=== PATIENT | female | born 1950 | race Caucasian/White ===

== ENCOUNTER → 2017-08-13 | Day surgery (SDC) | payer BC, MEDICARE ==
[2017-08-13 07:22] VITALS: BP 168/86; PULSE 111; RESP 16; TEMP 98.5; BMI 34.2
--- NOTE | 2017-08-14 11:16 | MM ---
Discontinued Stereotactic Mammotome core biopsy left breast. HISTORY: Increasing density left breast Multiple attempts at the localizing the density in question proved unsuccessful. Stereotactic core bi opsy was therefore discontinued. This was discussed with the patient and ordering physician. Needle l ocalization is recommended. IMPRESSION: Suspicious BI-RADS 4 Recommendation: Needle localization with open biopsy left breast.
== END | disposition home or self-care (01) ==
LOC: RADMAMWWP 06:49
PROVIDERS: ATTEND Surgery
DX: R92.8 Other abnormal and inconclusive findings on diagnostic imaging of breast (principal); Z88.8 Allergy status to other drugs, medicaments and biological substances; Z53.8 Procedure and treatment not carried out for other reasons

== ENCOUNTER 2017-08-25 07:04 | Day surgery (SDC) | payer MEDICARE, BC ==
[2017-08-20 11:31] VITALS: BMI 34.2
[~2017-08-25 07:04] MED LIST: DEXAMETHASONE SOD PHOSPHATE 10 MG/ML 1 ML VIAL IV ONE; HEPARIN SODIUM,PORCINE 5,000 UNIT/ML 1 ML VIAL SQ ONE; MIDAZOLAM 2 MG/2 ML VIAL IV PRN; ONDANSETRON 4 MG/2 ML VIAL IVP ONE; Pre Op ABX Message 1 EACH MISC MISCELLANE ONE; fentaNYL (PF) 50 MCG/ML 2 ML AMP IV PRN
[2017-08-25] MEDS ORDERED: ALPRAZolam 0.25 MG TAB PO ONE (07:40)
[2017-08-25 07:43] LABS: Glucose,Whole Blood 139 mg/dL (75-99)
[2017-08-25] MEDS ORDERED: LIDOCAINE 1% 20 ML VIAL (10MG/ML) FOR IV START INTRADERMA ONE (07:45)
[2017-08-25] MEDS: LACTATED RINGERS 1,000 ML IV SCH ×2 (07:45→10:46)
[2017-08-25] MEDS ORDERED: LIDOCAINE 1% INJ 10MG/ML (20 ML MDV) SQ ONE (09:16)
[2017-08-25] MEDS ORDERED: SODIUM BICARB 4% 5 ML VIAL (0.48 MEQ/ML) MISCELLANE ONE (09:16)
[2017-08-25] MEDS ORDERED: HEPARIN SODIUM,PORCINE 5,000 UNIT/ML 1 ML VIAL SQ ONE (10:34)
[2017-08-25] MEDS ORDERED: PHENYLEPHRINE-0.9% NACL SYG 1 MG/10 ML SYRINGE ONE (10:47)
[2017-08-25] MEDS ORDERED: LIDOCAINE 1% INJ 10MG/ML (20 ML MDV) ONE (10:47)
[2017-08-25] MEDS ORDERED: PROPOFOL 10 MG/ML 20 ML VIAL IV ONE (10:47)
[2017-08-25] MEDS ORDERED: SUCCINYLCHOLINE CHLORIDE 100 MG/5 ML SYR IV ONE (10:47)
[2017-08-25] MEDS ORDERED: fentaNYL (PF) 50 MCG/ML 2 ML AMP ONE (10:47)
[2017-08-25] MEDS ORDERED: MIDAZOLAM 2 MG/2 ML VIAL ONE (10:47)
--- NOTE | 2017-08-25 11:37 | P.OP ---
Date of Procedure: 08/25/17 Preoperative Diagnosis: Mammographic abnormality left breast Postoperative Diagnosis: same Anesthesia: ZAINA Surgeon: Karla Jarvis Estimated Blood Loss (ml): 5 IV fluids (ml): 600 Pathology: other (left breast tissue) Condition: stable Disposition: PACU Indications for Procedure: Mammographic abnormality left breast Operative Findings: Fibrocystic breast tissue Description of Procedure: Patient was taken to the operating room and following induction of anesthesia the left breast was prepped and draped in a sterile fashion. An incision was made and carried down to the hook of the dilator which had been placed preoperatively. Wide excision of the surrounding tissue was performed. After assured that hemostasis was attained the wound was well irrigated. The specimen was painted for orientation. Specimen was sent to x-ray for radiograph revealed that the area of concern had been removed. The surgeon's gloves were changed and the area of the left breast was again approached. Titanium clips were placed to coleman the area. The skin was closed using a 4-0 Monocryl suture. The tissues were closed with 3-0 Vicryl suture. The patient tolerated the procedure in stable condition.
--- NOTE | 2017-08-25 11:38 | P.DS ---
Providers Attending physician: Karla Jarvis Primary care physician: Chavez Santillan Plan - Discharge Summary New Discharge Prescriptions: No Action Irbesartan [Avapro] 150 mg PO BID Folic Acid 1 mg PO HS metFORMIN HCL 1,000 mg PO BID aMILoride-HCTZ 5-50 mg [Moduretic 5-50] 1 tab PO QAM Omeprazole [PriLOSEC] 40 mg PO HS Ferrous Sulfate [Feosol] 325 mg PO DAILY Cetirizine HCl [Zyrtec] 10 mg PO HS Montelukast [Singulair] 10 mg PO HS Insulin Detemir [Levemir Flextouch] 8 unit SQ HS Levothyroxine Sodium [Synthroid] 25 mcg PO QAM Cholecalciferol [Vitamin D3] 1,000 unit PO DAILY Aspirin [Adult Low Dose Aspirin EC] 81 mg PO DAILY Discharge Medication List Folic Acid 1 mg PO HS 08/31/14 [History] Irbesartan [Avapro] 150 mg PO BID 08/31/14 [History] Omeprazole [PriLOSEC] 40 mg PO HS 08/31/14 [History] aMILoride-HCTZ 5-50 mg [Moduretic 5-50] 1 tab PO QAM 08/31/14 [History] metFORMIN HCL 1,000 mg PO BID 08/31/14 [History] Cetirizine HCl [Zyrtec] 10 mg PO HS 07/20/15 [History] Cholecalciferol [Vitamin D3] 1,000 unit PO DAILY 07/20/15 [History] Ferrous Sulfate [Feosol] 325 mg PO DAILY 07/20/15 [History] Insulin Detemir [Levemir Flextouch] 8 unit SQ HS 07/20/15 [History] Levothyroxine Sodium [Synthroid] 25 mcg PO QAM 07/20/15 [History] Montelukast [Singulair] 10 mg PO HS 07/20/15 [History] Aspirin [Adult Low Dose Aspirin EC] 81 mg PO DAILY 07/31/17 [History] Follow up Appointment(s)/Referral(s): Karla Jarvis MD [STAFF PHYSICIAN] - 1 Week Activity/Diet/Wound Care/Special Instructions: Do not drive today Patient may shower after 48 hours Withdraw at all times Discharge Disposition: HOME SELF-CARE
[2017-08-25 11:51] VITALS: TEMP 97.4
[2017-08-25 11:51] LABS: Glucose,Whole Blood 124 mg/dL (75-99)
[2017-08-25] MEDS ORDERED: LACTATED RINGERS 1,000 ML IV ONE (12:07)
[2017-08-25 12:16] VITALS: RESP 16
[2017-08-25 12:46] VITALS: BP 135/65; PULSE 90
--- NOTE | 2017-08-25 14:14 | MM ---
EXAMINATION TYPE: MG pre op needle loc LT, MG surgical specimen LT DATE OF EXAM: 08/25/2017 COMPARISON: Exams dating back to 12/08/2011. CLINICAL HISTORY: Left breast asymmetry versus focal asymmetry without sonographic correlate. Canceled stereotactic biopsy secondary to nonvisualization. TECHNIQUE: Needle localization with wire placement and surgical excision of area of concern in the left breast. FINDINGS: The procedure of needle localization with wire placement and than surgical excision was explained to the patient. Benefits, alternatives, and risks were discussed. An informed consent was then obtained. Preprocedural timeout was performed. The shortest pathway for procedure was chosen. Shortest pathway was CC from above approach as the area of concern was best visualized in the CC projection on screening and diagnostic imaging. However, multiple attempts were made at localization and the previously seen asymmetry appears to compress with the appearance of fibroglandular tissue. The most pronounced area seen centrally on image 20 was localized corresponding to a superior asymmetry on the LM view. The overlying skin was prepped and draped in usual sterile fashion. 10 cc of lidocaine buffered with bicarbonate was used as anesthetic into the skin and subcutaneous tissue up to the level of area of concern. A 5 cm needle was used. It was placed via a CC from above approach under mammographic guidance. Subsequent 90 degrees mammogram show the needle to be in satisfactory position relative to the targeted area. At this point, wire was placed and the needle was withdrawn. The wire was fixed to patient's skin. Images were marked for surgeon. The patient tolerated the procedure well without any immediate complication. The patient was kept in the radiology department for short stay after the procedure and then taken to surgery for surgical excision. The entirety of the localization wire and surrounding density are identified in specimen radiograph. Findings were communicated to the OR. The patient was kept in hospital for short stay after the procedure and then discharged home in stable condition. IMPRESSION: Successful, uncomplicated needle localization with wire placement and surgical excision of the low suspicion, slightly more conspicuous focal asymmetry of the central upper left breast in comparison to prior exams without sonographic correlate, full pathology results to follow. Pathology Results: Benign BREAST, LEFT, NEEDLE LOCALIZATION EXCISION: FIBROCYSTIC CHANGES INCLUDING DENSE STROMAL FIBROSIS AND RARE MICROCALCIFICATIONS. Recommendation Follow up mammogram of the left breast in 6 months. YOSELIN
== END 2017-08-25 13:41 | disposition home or self-care (01) ==
LOC: OR 07:04
PROVIDERS: ATTEND Surgery
DX: N60.32 Fibrosclerosis of left breast (principal); R92.0 Mammographic microcalcification found on diagnostic imaging of breast; I10 Essential (primary) hypertension; M19.90 Unspecified osteoarthritis, unspecified site; E66.01 Morbid (severe) obesity due to excess calories; Z68.34 Body mass index [BMI] 34.0-34.9, adult; E11.9 Type 2 diabetes mellitus without complications; D50.9 Iron deficiency anemia, unspecified; E03.9 Hypothyroidism, unspecified; K21.9 Gastro-esophageal reflux disease without esophagitis; E78.5 Hyperlipidemia, unspecified; Z88.8 Allergy status to other drugs, medicaments and biological substances; Z79.2 Long term (current) use of antibiotics; Z79.82 Long term (current) use of aspirin; Z79.4 Long term (current) use of insulin; Z79.899 Other long term (current) drug therapy; Z79.84 Long term (current) use of oral hypoglycemic drugs; Z79.890 Hormone replacement therapy; Z86.010 Personal history of colon polyps; Z87.19 Personal history of other diseases of the digestive system
CPT/HCPCS: 19125; 88307; 76098; 19281; J2250; J1644; J1100; J2405; J2001; J3010; J2370; J0330; J2704

== ENCOUNTER → 2018-03-24 | Outpatient (CLI) | payer MEDICARE, BC ==
--- NOTE | 2018-03-25 09:47 | MM ---
Reason for exam: follow-up at short interval from prior study. Last mammogram was performed 2 years ago. History: Patient is postmenopausal. Benign MG pre op needle loc LT of the left breast, August 25, 2017. MG discontinued stereo core LT of the left breast, August 13, 2017. Took estrogen for 11 years beginning at age 44. Physical Findings: Nurse did not find any significant physical abnormalities on exam. MG 3D Diag Mammo W/Cad LT CC and MLO view(s) were taken of the left breast. Prior study comparison: March 12, 2016, bilateral MG screening mammo w CAD. August 07, 2014, bilateral MG screening mammo w CAD. There are scattered fibroglandular densities. Post operative changes left breast. No significant new findings when compared with previous films. These results were verbally communicated with the patient and result sheet given to the patient on 03/24/18. ASSESSMENT: Benign, BI-RAD 2 RECOMMENDATION: Routine screening mammogram of both breasts in 6 months.
== END | disposition home or self-care (01) ==
LOC: RADMAMWWP 10:34
PROVIDERS: ATTEND Surgery
DX: R92.8 Other abnormal and inconclusive findings on diagnostic imaging of breast (principal)
CPT/HCPCS: 77065; G0279; 77061

== ENCOUNTER → 2018-04-02 | Outpatient (CLI) | payer MEDICARE, BC ==
[2018-04-02 15:15] VITALS: BP 181/77; PULSE 80; RESP 20; TEMP 97.5; BMI 32.9
--- NOTE | 2018-04-02 15:36 | P.GSHP ---
History of Present Illness H&P Date: 04/02/18 Chief Complaint: Patient s/p left breast needle local and excisional biopsy August 2017 The patient is a 67-year-old white female who in the spring underwent a radiograph which revealed an increasing density in the left breast. Multiple attempts at localizing the density in question were unsuccessful and stereotactic core biopsy which was initially attempted was discontinued. The patient therefore underwent a needle localization and excisional biopsy. Pathology from this revealed fibrocystic changes including dense stromal fibrosis and rare microcalcifications. The patient subsequently underwent a repeat left breast mammogram on 1030 118. This was of the left breast only and this was felt to be stable benign BIRADS 2. Bilateral mammogram in 6 months was recommended. The patient is not complaining of any lumps or masses in her breast. The patient has not had any recent trauma or infection in her breast. Family history: maternal grandmother: cancer unsure of the type paternal grandmother: cancer unsure of the type Hormonal History: menarche: 15 ; 1, 1 child, breast fed: no, age at : 27 menopause: hysterectomy took ovaries in her 30's done for bleeding BCP: 1 year hormones: after hysterectomy 2 years Past surgical history: 1. Left breast biopsy 2. Right hip tendon surgery Past medical history: 1. Diabetes 2. Hypertension Social History: smoke: none alcohol: none drugs: none - Constitutional Constitutional: Denies chills, Denies fever - EENT Eyes: denies blurred vision, denies pain Ears: bilateral: tinnitus, deny: decreased hearing Ears, nose, mouth and throat: Reports sore throat - Breasts Breasts: bilateral: as per HPI - Cardiovascular Cardiovascular: Reports high blood pressure - Respiratory Respiratory: Denies cough, Denies 7 - Gastrointestinal Comment: PUD in past Gastrointestinal: Denies abdominal pain, Denies diarrhea, Denies nausea, Denies vomiting - Genitourinary (Female) Genitourinary: Denies dysuria, Denies hematuria - Musculoskeletal Comment: right hip pain, - Integumentary Integumentary: Denies pruritus, Denies rash - Neurological Neurological: Denies numbness, Denies weakness - Psychiatric Psychiatric: Denies anxiety, Denies depression - Endocrine Comment: diabetes - Hematologic/Lymphatic Comment: none - Allergic/Immunologic Allergic/Immunologic: Reports seasonal allergies Past Medical History Past Medical History: Diabetes Mellitus, GERD/Reflux, Hypertension, Osteoarthritis (OA) Additional Past Medical History / Comment(s): ENVIRONMENTAL ALLERGIES, HIATAL HERNIA, ANEMIA WITH IRON TRANSFUSION., RIGHT HIP PAIN. , ABNORMAL MAMMOGRAM. History of Any Multi-Drug Resistant Organisms: None Reported Past Surgical History: Cholecystectomy, Hysterectomy Additional Past Surgical History / Comment(s): larry 2012, hysterectomy 1992, sinus surgery 2008, tendon reattached in right leg with screws in place 2007. Past Anesthesia/Blood Transfusion Reactions: No Reported Reaction Past Psychological History: No Psychological Hx Reported Smoking Status: Never smoker Past Alcohol Use History: None Reported Past Drug Use History: None Reported - Past Family History Mother Family Medical History: No Reported History Brother(s) Family Medical History: Pulmonary Embolus Father Family Medical History: Diabetes Mellitus, Myocardial Infarction (DC) Medications and Allergies Home Medications Medication Instructions Recorded Confirmed Type Folic Acid 1 mg PO HS 08/31/14 04/02/18 History Irbesartan [Avapro] 150 mg PO BID 08/31/14 04/02/18 History Omeprazole [PriLOSEC] 40 mg PO HS 08/31/14 04/02/18 History aMILoride-HCTZ 5-50 mg [Moduretic 1 tab PO QAM 08/31/14 04/02/18 History 5-50] metFORMIN HCL 1,000 mg PO BID 08/31/14 04/02/18 History Cetirizine HCl [Zyrtec] 10 mg PO HS 07/20/15 04/02/18 History Cholecalciferol [Vitamin D3] 1,000 unit PO DAILY 07/20/15 04/02/18 History Ferrous Sulfate [Feosol] 325 mg PO DAILY 07/20/15 04/02/18 History Insulin Detemir [Levemir Flextouch] 8 unit SQ HS 07/20/15 04/02/18 History Levothyroxine Sodium [Synthroid] 25 mcg PO QAM 07/20/15 04/02/18 History Montelukast [Singulair] 10 mg PO HS 07/20/15 04/02/18 History Aspirin [Adult Low Dose Aspirin EC] 81 mg PO DAILY 07/31/17 04/02/18 History Metoprolol Tartrate [Lopressor] 25 mg PO BID 04/02/18 04/02/18 History Allergies Allergy/AdvReac Type Severity Reaction Status Date / Time pregabalin [From Lyrica] AdvReac dizzy Verified 08/25/17 07:14 Surgical - Exam Vital Signs Temp Pulse Resp BP Pulse Ox 97.5 F L 80 20 181/77 98 04/02/18 15:09 04/02/18 15:09 04/02/18 15:09 04/02/18 15:09 04/02/18 15:09 BMI 32.9 - General obese - Eyes normal ocular movement - ENT no hearing loss, no congestion - Neck no masses, trachea midline - Respiratory normal respiratory effort, clear to auscultation - Cardiovascular Rhythm: regular Heart Sounds: normal: S1, S2 - Abdomen Abdomen: soft - Integumentary normal turger - Musculoskeletal normal gait, normal posture - Psychiatric oriented to time, oriented to person, oriented to place, speech is normal, memory intact Breast exam: Right breast: Multi-positional exam no dominant masses or nodules of concern Right axilla: No adenopathy of concern Left breast: Multi-positional exam well-healed scar from prior biopsy no dominant masses or nodules of concern Left axilla: No adenopathy of concern Results Results of mammogram 03/24/2018 reviewed Assessment and Plan Assessment: Impression: 1. Stable findings left breast status post open biopsy 2. Diabetes 3. Environmental ALLERGIES Plan: 1. Repeat bilateral mammogram in physician exam of the breast in 6 months 2. Medical management of medical conditions At this time the patient does not have any evidence of malignancy or changes of concern in the left breast. We recommend repeat bilateral mammogram in 6 months time with physician exam at that time. The patient notices anything of concern would like to see her sooner. Cc: Dr. Santillan
== END ==
LOC: WWCWWP 14:58
PROVIDERS: ATTEND Surgery
DX: Z53.9 Procedure and treatment not carried out, unspecified reason (principal)

== ENCOUNTER 2018-10-27 07:48 | Day surgery (SDC) | payer MEDICARE, BC ==
[2018-10-26 11:11] VITALS: BMI 32.9
[~2018-10-27 07:48] MED LIST changes: -DEXAMETHASONE SOD PHOSPHATE 10 MG/ML 1 ML VIAL IV ONE; -HEPARIN SODIUM,PORCINE 5,000 UNIT/ML 1 ML VIAL SQ ONE; +LACTATED RINGERS 1,000 ML IV SCH; -MIDAZOLAM 2 MG/2 ML VIAL IV PRN; -ONDANSETRON 4 MG/2 ML VIAL IVP ONE; -Pre Op ABX Message 1 EACH MISC MISCELLANE ONE; -fentaNYL (PF) 50 MCG/ML 2 ML AMP IV PRN
[2018-10-27] MEDS ORDERED: LACTATED RINGERS 1,000 ML IV ONE (08:15)
[2018-10-27 08:28] VITALS: TEMP 98.3
[2018-10-27 08:32] LABS: Glucose,Whole Blood 138 mg/dL (75-99)
[2018-10-27] MEDS ORDERED: PROPOFOL 10 MG/ML 20 ML VIAL IV ONE (08:35)
--- NOTE | 2018-10-27 08:42 | P.GSHP ---
History of Present Illness H&P Date: 10/27/18 CHIEF COMPLAINT: Colon screen HISTORY OF PRESENT ILLNESS: The patient is a 68-year-old female who presents for colon screen. Lower endoscopy was offered for further evaluation and management. PAST MEDICAL HISTORY: Please see list. PAST SURGICAL HISTORY: Please see list. MEDICATIONS: Please see list. ALLERGIES: Please see list. SOCIAL HISTORY: No illicit drug use FAMILY HISTORY: No reports of Crohn disease or ulcerative colitis. REVIEW OF ORGAN SYSTEMS: CONSTITUTIONAL: No reports of fevers or chills. PHYSICAL EXAM: VITAL SIGNS: Stable GENERAL: Well-developed pleasant in no acute distress. HEENT: No scleral icterus. Extraocular movements grossly intact. Moist buccal mucosa. NECK: Supple without lymphadenopathy. CHEST: Unlabored respirations. Equal bilateral excursions. CARDIOVASCULAR: Regular rate and rhythm. Distal 2+ pulses. ABDOMEN: Soft, nontender, nondistended. MUSCULOSKELETAL: No clubbing, cyanosis, or edema. ASSESSMENT: 1. Colon screen. PLAN: 1. Recommend proceeding with a lower endoscopy Past Medical History Past Medical History: Diabetes Mellitus, GERD/Reflux, Hypertension, Osteoarthritis (OA) Additional Past Medical History / Comment(s): ENVIRONMENTAL ALLERGIES, HIATAL HERNIA, ANEMIA WITH IRON TRANSFUSION., RIGHT HIP PAIN. , ABNORMAL MAMMOGRAM. History of Any Multi-Drug Resistant Organisms: None Reported Past Surgical History: Breast Surgery, Cholecystectomy, Hysterectomy Additional Past Surgical History / Comment(s): larry 2012, hysterectomy 1992, sinus surgery 2008, tendon reattached in right leg with screws in place 2007. COLONOSCOPY, LT BREAST LUMPECTOMY-BENIGN Past Anesthesia/Blood Transfusion Reactions: No Reported Reaction Smoking Status: Never smoker - Past Family History Mother Family Medical History: No Reported History Brother(s) Family Medical History: Pulmonary Embolus Father Family Medical History: Diabetes Mellitus, Myocardial Infarction ([place]) Medications and Allergies Home Medications Medication Instructions Recorded Confirmed Type Folic Acid 1 mg PO HS 08/31/14 10/27/18 History Irbesartan [Avapro] 150 mg PO BID 08/31/14 10/27/18 History Omeprazole [PriLOSEC] 40 mg PO HS 08/31/14 10/27/18 History aMILoride-HCTZ 5-50 mg [Moduretic 1 tab PO QAM 08/31/14 10/27/18 History 5-50] metFORMIN HCL 1,000 mg PO BID 08/31/14 10/27/18 History Cetirizine HCl [Zyrtec] 10 mg PO HS 07/20/15 10/27/18 History Cholecalciferol [Vitamin D3] 1,000 unit PO DAILY 07/20/15 10/27/18 History Ferrous Sulfate [Feosol] 325 mg PO DAILY 07/20/15 10/26/18 History Insulin Detemir [Levemir Flextouch] 10 unit SQ HS 07/20/15 10/27/18 History Levothyroxine Sodium [Synthroid] 25 mcg PO QAM 07/20/15 10/27/18 History Montelukast [Singulair] 10 mg PO HS 07/20/15 10/27/18 History Aspirin [Adult Low Dose Aspirin EC] 81 mg PO DAILY 07/31/17 10/26/18 History Metoprolol Tartrate [Lopressor] 25 mg PO BID 04/02/18 10/27/18 History Allergies Allergy/AdvReac Type Severity Reaction Status Date / Time pregabalin [From Lyrica] AdvReac dizzy Verified 10/27/18 08:21 Surgical - Exam Vital Signs Temp Pulse Resp BP Pulse Ox 98.3 F 90 18 217/99 98 10/27/18 08:27 10/27/18 08:27 10/27/18 08:27 10/27/18 08:27 10/27/18 08:27 Results - Labs Abnormal Lab Results - Last 24 Hours (Table) 10/27/18 Range/Units 08:29 POC Glucose (mg/dL) 138 H (75-99) mg/dL
--- NOTE | 2018-10-27 09:12 | P.PCN ---
Date of Procedure: 10/27/18 Description of Procedure: PREOPERATIVE DIAGNOSIS: Personal history of colon polyps Colonoscopy screening. POSTOPERATIVE DIAGNOSIS: Personal history of colon polyps Colonoscopy screening. Sigmoid diverticulosis. Sigmoid stricture Internal grade 2 hemorrhoids OPERATION: Colonoscopy to the ileocecal valve and appendiceal orifice. Colonoscopy with cold forceps biopsy at the ascending colon. SURGEON: Gin Mcpherson MD. ANESTHESIA: MAC. INDICATIONS: The patient is a 68-year-old female who presents for colonoscopy screening. Last colonoscopy was within 5 years. Benefits and risks were described and informed consent was obtained. DESCRIPTION OF PROCEDURE: The patient had Suprep. She had been brought into the operating room and laid in the left lateral decubitus position. After adequate intravenous sedation, the rectum was examined with 2% lidocaine jelly. Mild external hemorrhoids without active inflammation were encountered. The rectal tone was within normal limits. No lesions were palpated in the rectal vault. An Olympus pediatric colonoscope was exchanged from an adult scope that was advanced until the ileocecal valve and appendiceal orifice were clearly viewed. Abdominal pressure along the sigmoid colon was required to advance the scope beyond 20 cm from the anal verge. Scattered sigmoid diverticulosis disease was encountered. No colonic polyps were found. Mild hyperemia along the rectum was found. Retroflexion of the scope demonstrated grade 2 internal hemorrhoids without active bleeding or inflammation. The colon was desufflated. The patient had tolerated the procedure well. FINDINGS: Aronchick preparation quality scale 1 (1-5) No arteriovenous malformations. No adenomatous polyps. Internal hemorrhoids, grade 2. External prolapsed hemorrhoids, grade 2. Sigmoid diverticulosis. Sigmoid stricture at 20 cm from the anal verge RECOMMENDATIONS: Lower endoscopy in 5 years, 2023 Plan - Discharge Summary Discharge Rx Participant: No New Discharge Prescriptions: No Action Irbesartan [Avapro] 150 mg PO BID Folic Acid 1 mg PO HS metFORMIN HCL 1,000 mg PO BID aMILoride-HCTZ 5-50 mg [Moduretic 5-50] 1 tab PO QAM Omeprazole [PriLOSEC] 40 mg PO HS Ferrous Sulfate [Feosol] 325 mg PO DAILY Cetirizine HCl [Zyrtec] 10 mg PO HS Montelukast [Singulair] 10 mg PO HS Insulin Detemir [Levemir Flextouch] 10 unit SQ HS Levothyroxine Sodium [Synthroid] 25 mcg PO QAM Cholecalciferol [Vitamin D3] 1,000 unit PO DAILY Aspirin [Adult Low Dose Aspirin EC] 81 mg PO DAILY Metoprolol Tartrate [Lopressor] 25 mg PO BID Discharge Medication List Folic Acid 1 mg PO HS 08/31/14 [History] Irbesartan [Avapro] 150 mg PO BID 08/31/14 [History] Omeprazole [PriLOSEC] 40 mg PO HS 08/31/14 [History] aMILoride-HCTZ 5-50 mg [Moduretic 5-50] 1 tab PO QAM 08/31/14 [History] metFORMIN HCL 1,000 mg PO BID 08/31/14 [History] Cetirizine HCl [Zyrtec] 10 mg PO HS 07/20/15 [History] Cholecalciferol [Vitamin D3] 1,000 unit PO DAILY 07/20/15 [History] Ferrous Sulfate [Feosol] 325 mg PO DAILY 07/20/15 [History] Insulin Detemir [Levemir Flextouch] 10 unit SQ HS 07/20/15 [History] Levothyroxine Sodium [Synthroid] 25 mcg PO QAM 07/20/15 [History] Montelukast [Singulair] 10 mg PO HS 07/20/15 [History] Aspirin [Adult Low Dose Aspirin EC] 81 mg PO DAILY 07/31/17 [History] Metoprolol Tartrate [Lopressor] 25 mg PO BID 04/02/18 [History] Follow up Appointment(s)/Referral(s): Gin Mcpherson MD [STAFF PHYSICIAN] - 11/09/18 Patient Instructions/Handouts: Diverticulosis (DC), Diverticulosis Diet (GEN) Activity/Diet/Wound Care/Special Instructions: Repeat colonoscopy 5 years, 2023 Discharge Disposition: HOME SELF-CARE
[2018-10-27 09:18] LABS: Glucose,Whole Blood 117 mg/dL (75-99)
[2018-10-27 09:24] VITALS: BP 160/80; PULSE 87; RESP 16
== END 2018-10-27 10:13 | disposition home or self-care (01) ==
LOC: ORWHC2ENDO 07:48
PROVIDERS: ATTEND Surgery Plastic and Reconstructive Surgery
DX: Z12.11 Encounter for screening for malignant neoplasm of colon (principal); Z86.010 Personal history of colon polyps; D64.9 Anemia, unspecified; E11.9 Type 2 diabetes mellitus without complications; I10 Essential (primary) hypertension; K21.9 Gastro-esophageal reflux disease without esophagitis; K44.9 Diaphragmatic hernia without obstruction or gangrene; K57.30 Diverticulosis of large intestine without perforation or abscess without bleeding; K64.1 Second degree hemorrhoids; K64.4 Residual hemorrhoidal skin tags; M19.90 Unspecified osteoarthritis, unspecified site; Z79.4 Long term (current) use of insulin; Z79.82 Long term (current) use of aspirin; Z90.710 Acquired absence of both cervix and uterus; Z90.49 Acquired absence of other specified parts of digestive tract; Z82.49 Family history of ischemic heart disease and other diseases of the circulatory system
CPT/HCPCS: J2704; G0105

== ENCOUNTER → 2018-11-03 | Outpatient (CLI) | payer MEDICARE, BC ==
--- NOTE | 2018-11-04 11:03 | MM ---
Reason for exam: screening (asymptomatic). Last mammogram was performed 7 months ago. History: Patient is postmenopausal. Benign MG pre op needle loc LT of the left breast, August 25, 2017. MG discontinued stereo core LT of the left breast, August 13, 2017. Took estrogen for 11 years beginning at age 44. Physical Findings: A clinical breast exam by your physician is recommended on an annual basis and results should be correlated with mammographic findings. MG 3D Screening Mammo W/Cad Bilateral CC, MLO, and XCCL view(s) were taken. Prior study comparison: March 24, 2018, left breast MG 3d diag mammo w/cad LT. March 12, 2016, bilateral MG screening mammo w CAD. There are scattered fibroglandular densities. There are benign appearing round vascular calcifications bilaterally. There are clips in the upper outer left breast consistent with known excisional biopsy. There is chronic nodularity in the right breast. There is no discrete abnormality. ASSESSMENT: Benign, BI-RAD 2 RECOMMENDATION: Routine screening mammogram of both breasts in 1 year.
== END | disposition home or self-care (01) ==
LOC: RADMAMWWP 09:51
PROVIDERS: ATTEND Surgery
DX: Z12.31 Encounter for screening mammogram for malignant neoplasm of breast (principal)
CPT/HCPCS: 77063; 77067

== ENCOUNTER → 2018-11-05 | Outpatient (CLI) | payer MEDICARE, BC ==
[2018-11-05 13:44] VITALS: BP 139/83; PULSE 92; RESP 18; TEMP 98.3; BMI 32.9
--- NOTE | 2018-11-05 14:29 | P.PN ---
Subjective Progress Note Date: 11/05/18 The patient is a 67-year-old white female who in the spring underwent a radiograph which revealed an increasing density in the left breast. Multiple attempts at localizing the density in question were unsuccessful and stereotactic core biopsy which was initially attempted was discontinued. The p atient therefore underwent a needle localization and excisional biopsy. Pathology from this revealed fibrocystic changes including dense stromal fibrosis and rare microcalcifications. The patient subsequently underwent a repeat left breast mammogram on [id number]. This was of the left breast only and this was felt to be stable benign BIRADS 2. Bilateral mammogram in 6 months was recommended. [place] [address]. This was benign BIRADS 1. The patient is not complaining of any lumps or masses in her breasts. She is not complaining of any pains or problems in her breast. The patient has not had any recent trauma or infection in her breast. Family history: maternal grandmother: cancer unsure of the type paternal grandmother: cancer unsure of the type Hormonal History: menarche: 15 ; 1, 1 child, breast fed: no, age at : 27 menopause: hysterectomy took ovaries in her 30's done for bleeding BCP: 1 year hormones: after hysterectomy 2 years Past surgical history: 1. Left breast biopsy 2. Right hip tendon surgery Past medical history: 1. Diabetes 2. Hypertension Social History: smoke: none alcohol: none drugs: none - Constitutional Constitutional: Denies chills, Denies fever - EENT Eyes: denies blurred vision, denies pain Ears: bilateral: tinnitus, deny: decreased hearing Ears, nose, mouth and throat: Reports sore throat - Breasts Breasts: bilateral: as per HPI - Cardiovascular Cardiovascular: Reports high blood pressure rapid heart beat - Respiratory Respiratory: Denies cough - Gastrointestinal Comment: PUD in past Gastrointestinal: Denies abdominal pain, Denies diarrhea, Denies nausea, Denies vomiting - Genitourinary (Female) Genitourinary: Denies dysuria, Denies hematuria - Musculoskeletal Comment: right hip pain, - Integumentary Integumentary: Denies pruritus, Denies rash - Neurological Neurological: Denies numbness, Denies weakness - Psychiatric Psychiatric: Denies anxiety, Denies depression - Endocrine Comment: diabetes - Hematologic/Lymphatic Comment: none - Allergic/Immunologic Allergic/Immunologic: Reports seasonal allergies Past Medical History Past Medical History: Diabetes Mellitus, GERD/Reflux, Hypertension, Osteoarthritis (OA) Additional Past Medical History / Comment(s): ENVIRONMENTAL ALLERGIES, HIATAL HERNIA, ANEMIA WITH IRON TRANSFUSION., RIGHT HIP PAIN. , ABNORMAL MAMMOGRAM. History of Any Multi-Drug Resistant Organisms: None Reported Past Surgical History: Cholecystectomy, Hysterectomy Additional Past Surgical History / Comment(s): larry 2012, hysterectomy 1992, sinus surgery 2008, tendon reattached in right leg with screws in place 2007. Past Anesthesia/Blood Transfusion Reactions: No Reported Reaction Past Psychological History: No Psychological Hx Reported Smoking Status: Never smoker Past Alcohol Use History: None Reported Past Drug Use History: None Reported - Past Family History Mother Family Medical History: No Reported History Brother(s) Family Medical History: Pulmonary Embolus Father Family Medical History: Diabetes Mellitus, Myocardial Infarction (ME) Medications and Allergies Objective - Vital Signs Vital signs: Vital Signs Temp 98.3 F 11/05/18 13:35 Pulse 92 11/05/18 13:35 Resp 18 11/05/18 13:35 BP 139/83 11/05/18 13:35 Pulse Ox 97 11/05/18 13:35 Intake & Output 11/04/18 11/05/18 11/05/18 18:59 06:59 18:59 Weight 81.647 kg - Exam BMI 32.9 - Constitutional General appearance: Present: obese - EENT Eyes: Present: EOMI ENT: Present: hearing grossly normal - Neck Neck: Present: normal ROM - Respiratory Respiratory: bilateral: CTA - Cardiovascular Rhythm: regular Heart sounds: normal: S1, S2 - Gastrointestinal General gastrointestinal: Present: soft - Integumentary Integumentary Comment(s): keloids on anterior abdominal wall - Musculoskeletal Musculoskeletal: Present: gait normal - Psychiatric Psychiatric: Present: A&O x's 3, appropriate affect, intact judgment & insight - Additional findings Additional findings: Breast Exam: right breast: Multi-positional exam no dominant masses or nodules of concern Right axilla: No adenopathy of concern Left breast: Multiple positional exam no dominant masses or nodules of concern Left axilla: No adenopathy of concern Assessment and Plan Assessment: Impression: 1. Diabetes 2. Hypertension 3. fibrocystic breast changes 4. family history of cancer Plan: 1. repeat bilateral mammogram in 1 year and appointment at that time CC: Dr. Santillan, [place]
== END ==
LOC: WWCWWP 13:32
PROVIDERS: ATTEND Surgery
DX: Z53.9 Procedure and treatment not carried out, unspecified reason (principal)

== ENCOUNTER → 2018-11-19 | Outpatient (CLI) | payer MEDICARE, BC ==
--- NOTE | 2018-11-19 10:34 | CT ---
EXAMINATION TYPE: CT abdomen pelvis w con DATE OF EXAM: 11/19/2018 COMPARISON: None HISTORY: Diverticulitis CT DLP: 1316.1 mGycm CONTRAST: CT scan of the abdomen and pelvis is performed with Oral Contrast and with IV Contrast, patient injec zahra with 50 mL of Isovue 300. FINDINGS: LUNG BASES-: No visible nodule. No infiltrate. Elevation of the right hemidiaphragm. Calcified hilar lymph nodes. Calcified granulomas. LIVER/GB: The gallbladder surgically absent. There is a nodular hepatic contour compatible with cirrh otic liver disease. There is also evidence of hepatomegaly. There is recanalization of the umbilical vein. Gastric varices noted. PANCREAS: No inflammation. No distinct mass. SPLEEN: No splenic enlargement. No lesion seen. ADRENALS: No nodule. No thickening. KIDNEYS/BLADDER: No hydronephrosis. No nephrolithiasis. No distinct renal mass. Urinary bladder g rossly unremarkable. BOWEL: Normal appendix. Mild sigmoid diverticulosis without diverticulitis. Normal bowel caliber. N o inflammation. GENITAL ORGANS: No gross abnormality. LYMPH NODES: No greater than 1cm abdominal or pelvic lymph nodes are appreciated. AORTA: No significant abnormality. OSSEOUS STRUCTURES: Severe degenerative change lumbar spine. OTHER: No significant additional abnormality is seen. IMPRESSION: 1. Mild sigmoid diverticulosis without diverticulitis. 2. Cirrhotic liver disease with portal venous hypertension.
== END | disposition home or self-care (01) ==
LOC: RADCTMAIN 07:28
PROVIDERS: ATTEND Surgery Plastic and Reconstructive Surgery
DX: K57.30 Diverticulosis of large intestine without perforation or abscess without bleeding (principal); K74.60 Unspecified cirrhosis of liver; K76.6 Portal hypertension
CPT/HCPCS: 82565; 84520; 74177; 36415; Q9967

== ENCOUNTER → 2020-03-15 | Outpatient (CLI) | payer MEDICARE, BC ==
[2020-03-15 13:38] VITALS: RESP 18
--- NOTE | 2020-03-15 13:38 | P.PN ---
Subjective Progress Note Date: 03/15/20 Principal diagnosis: fibrocystic breast changes The patient is a 69-year-old white female who in the spring of 2017 underwent a radiograph which revealed an increasing density in the left breast. Multiple attempts at localizing the density in question were unsuccessful and stere otactic core biopsy which was initially attempted was discontinued. The patient therefore underwent a needle localization and excisional biopsy. Pathology from this revealed fibrocystic changes including dense stromal fibrosis and rare microcalcifications. The patient subsequently underwent a repeat left breast mammogram on [id number]. This was of the left breast only and this was felt to be stable benign BIRADS 2. Bilateral mammogram in 6 months was recommended. The patient had a bilateral mammogram performed on . This was benign BIRADS 1. The patients most recent bilateral mammogram was on 12-20-19 and this was benign BIRAD 2, with repeat mammogram in 1 year recommended. The patient is not complaining of any lumps or masses in her breasts. She is not complaining of any pains or problems in her breast. No nipple discharge of concern. The patient has not had any recent trauma or infection in her breast. Family history: maternal grandmother: cancer unsure of the type paternal grandmother: cancer unsure of the type Hormonal History: menarche: 15 ; 1, 1 child, breast fed: no, age at : 27 menopause: hysterectomy took ovaries in her 30's done for bleeding BCP: 1 year hormones: after hysterectomy 2 years Past surgical history: 1. Left breast biopsy 2. Right hip tendon surgery 3. EGD 4. enlarged liver/ recent ultrasound [place] nonalcoholic cirrhosis Past medical history: 1. Diabetes 2. Hypertension 3. follows with cardiology for possible CAD Social History: smoke: none alcohol: none drugs: none - Constitutional Constitutional: Denies chills, Denies fever - EENT Eyes: denies blurred vision, denies pain Ears: bilateral: tinnitus, deny: decreased hearing Ears, nose, mouth and throat: Reports sore throat - Breasts Breasts: bilateral: as per HPI - Cardiovascular Cardiovascular: Reports high blood pressure rapid heart beat - Respiratory Respiratory: Denies cough - Gastrointestinal Comment: PUD in past Gastrointestinal: Denies abdominal pain, Denies diarrhea, Denies nausea, Denies vomiting - Genitourinary (Female) Genitourinary: Denies dysuria, Denies hematuria - Musculoskeletal Comment: right hip pain, - Integumentary Integumentary: Denies pruritus, Denies rash - Neurological Neurological: Denies numbness, Denies weakness - Psychiatric Psychiatric: Denies anxiety, Denies depression - Endocrine Comment: diabetes - Hematologic/Lymphatic Comment: none - Allergic/Immunologic Allergic/Immunologic: Reports seasonal allergies Objective - Vital Signs Vital signs: T: 98.1, BP: 176/74, HR: 97 Resp: 18 - Exam BMI: 31.3 - Constitutional General appearance: Present: average body habitus - EENT Eyes: Present: EOMI ENT: Present: hearing grossly normal - Neck Neck: Present: normal ROM - Respiratory Respiratory: right: diminished (Decreased breath sounds at right base), left: CTA - Cardiovascular Rhythm: regular Heart sounds: normal: S1, S2 - Gastrointestinal General gastrointestinal: Present: normal bowel sounds, soft - Integumentary Integumentary Comment(s): Patient has multiple keloids over her abdomen Integumentary: Present: normal turgor - Musculoskeletal Musculoskeletal: Present: gait normal - Psychiatric Psychiatric: Present: A&O x's 3, appropriate affect, intact judgment & insight - Additional findings Additional findings: Breast exam: Bra: 42C inspection: bilateral grade 3 ptosis palpation: right breast: Multi-positional exam fibrocystic changes, no dominant masses or nodules of concern Right axilla: No adenopathy of concern Left breast: Multi-positional exam no dominant masses or nodules of concern fibrocystic changes Left axilla: No adenopathy of concern Assessment and Plan Assessment: Impression: 1. Fibrocystic breast changes 2. Recent bilateral mammogram BIRADS 2 from November 2019 3. Nonalcoholic liver disease follow up with primary care doctor 4. Diabetes 5. Hypertension 6. Possible coronary artery disease 7. BMI 31.3 Plan: 1. Repeat bilateral mammogram in 1 year 2. Continue to follow with primary care doctor regarding multiple medical problems Cc: Dr. Santillan encounter 20 minutes, > 50% of time in planning and counselling Time with Patient: Less than 30
[2020-03-15 13:41] VITALS: BP 176/74; PULSE 97; TEMP 98.1
== END | disposition home or self-care (01) ==
LOC: WWCWWP 13:10
PROVIDERS: ATTEND Surgery
DX: Z53.9 Procedure and treatment not carried out, unspecified reason (principal)

== ENCOUNTER → 2020-12-20 | Outpatient (CLI) | payer MEDICARE, BC ==
--- NOTE | 2020-12-24 08:55 | MM ---
Reason for exam: screening (asymptomatic). Last mammogram was performed 1 year ago. History: Patient is postmenopausal. Benign MG pre op needle loc LT of the left breast, August 25, 2017. MG discontinued stereo core LT of the left breast, August 13, 2017. Took hormonal contraceptives for 10 years. Took estrogen for 11 years beginning at age 44. Physical Findings: A clinical breast exam by your physician is recommended on an annual basis and results should be correlated with mammographic findings. MG 3D Screening Mammo W/Cad Bilateral CC and MLO view(s) were taken. Prior study comparison: December 20, 2019, bilateral MG 3d screening mammo w/cad. November 03, 2018, bilateral MG 3d screening mammo w/cad. There are scattered fibroglandular densities. There is chronic nodularity in the right breast. Post excisional/surgical changes left breast. Lateral nodularity left CC view, which stable in size, shows increasing density. Precautionary 6 month follow up mammogram. ASSESSMENT: Probably benign, BI-RAD 3 RECOMMENDATION: Follow-up diagnostic mammogram of the left breast in 6 months.
== END | disposition home or self-care (01) ==
LOC: RADMAMWWP 15:05
PROVIDERS: ATTEND Surgery
DX: Z12.31 Encounter for screening mammogram for malignant neoplasm of breast (principal)
CPT/HCPCS: 77063; 77067

== ENCOUNTER → 2021-01-03 | Outpatient (CLI) | payer MEDICARE, BC ==
[2021-01-03 12:10] VITALS: BP 163/80; PULSE 85; RESP 18; TEMP 98.8
--- NOTE | 2021-01-03 12:42 | P.PN ---
Subjective Progress Note Date: 01/03/21 Principal diagnosis: Fibrocystic breast changes fibrocystic breast changes The patient is a 70-year-old white female who in the spring of 2017 underwent a radiograph which revealed an increasing density in the left breast. Multiple attempts at localizing the density in question were unsuccessful and stereotactic core biopsy which was initially attempted was discontinued. The patient therefore underwent a needle localization and excisional biopsy. Pathology from this revealed fibrocystic changes including dense stromal fibrosis and rare microcalcifications. The patient subsequently underwent a repeat left breast mammogram on [id number]. This was of the left breast only and this was felt to be stable benign BIRADS 2. Bilateral mammogram in 6 months was recommended. [place] [address]. This was benign BIRADS 1. The [place] [address]. The right breast was stable but in the left breast there was some lateral nodularity which had increased slightly in density. Percussion a six-month follow-up was recommended. The patient does not feel any lumps masses or nodules of concern in either breast. Family history: maternal grandmother: cancer unsure of the type paternal grandmother: cancer unsure of the type Hormonal History: menarche: 15 ; 1, 1 child, breast fed: no, age at : 27 menopause: hysterectomy took ovaries in her 30's done for bleeding BCP: 1 year hormones: after hysterectomy 2 years Past surgical history: 1. Left breast biopsy 2. Right hip tendon surgery 3. EGD 4. enlarged liver/ recent ultrasound [place] nonalcoholic cirrhosis Past medical history: 1. Diabetes 2. Hypertension 3. follows with cardiology for possible CAD Social History: smoke: none alcohol: none drugs: none - Constitutional Constitutional: Denies chills, Denies fever - EENT Eyes: denies blurred vision, denies pain Ears: bilateral: tinnitus, deny: decreased hearing Ears, nose, mouth and throat: Reports sore throat - Breasts Breasts: bilateral: as per HPI - Cardiovascular Cardiovascular: Reports high blood pressure rapid heart beat - Respiratory Respiratory: Denies cough - Gastrointestinal Comment: PUD in past Gastrointestinal: Denies abdominal pain, Denies diarrhea, Denies nausea, Denies vomiting - Genitourinary (Female) Genitourinary: Denies dysuria, Denies hematuria - Musculoskeletal Comment: right hip pain, - Integumentary Integumentary: Denies pruritus, Denies rash - Neurological Neurological: Denies numbness, Denies weakness - Psychiatric Psychiatric: Denies anxiety, Denies depression - Endocrine Comment: diabetes - Hematologic/Lymphatic Comment: none - Allergic/Immunologic Allergic/Immunologic: Reports seasonal allergies Objective - Vital Signs Vital signs: Vital Signs Temp 98.8 F 01/03/21 12:06 Pulse 85 01/03/21 12:06 Resp 18 01/03/21 12:06 BP 163/80 01/03/21 12:06 Pulse Ox 97 01/03/21 12:06 Intake & Output 01/02/21 01/03/21 01/03/21 18:59 06:59 18:59 Weight 75.296 kg - Constitutional General appearance: Present: cooperative - EENT Eyes: Present: EOMI ENT: Present: hearing grossly normal - Respiratory Respiratory: bilateral: CTA - Cardiovascular Heart sounds: normal: S1, S2 - Integumentary Integumentary: Present: normal turgor - Musculoskeletal Musculoskeletal: Present: gait normal - Psychiatric Psychiatric: Present: A&O x's 3, appropriate affect, intact judgment & insight - Additional findings Additional findings: Breast Exam: Bra: 44C inspection: Bilateral grade 3 ptosis Palpation: Right breast: Multi-positional exam fibrocystic changes, no dominant masses or nodules of concern Right axilla: No adenopathy of concern Left breast: Multi-positional exam fibrocystic changes no dominant masses or nodules of concern Left axilla: No adenopathy of concern Assessment and Plan Assessment: Impression: Fibrocystic breast changes on physical examination Abnormal left breast mammogram Diabetes Hypertension Follows with cardiology for coronary artery disease Plan: Left breast mammogram 6 months with physician exam at that time Patient to call sooner if any questions or concerns CC:Dr. Chavez Santillan
== END | disposition home or self-care (01) ==
LOC: WWCWWP 11:41
PROVIDERS: ATTEND Surgery
DX: N60.11 Diffuse cystic mastopathy of right breast (principal); N60.12 Diffuse cystic mastopathy of left breast; R92.8 Other abnormal and inconclusive findings on diagnostic imaging of breast; E11.9 Type 2 diabetes mellitus without complications; I10 Essential (primary) hypertension; I25.10 Atherosclerotic heart disease of native coronary artery without angina pectoris

== ENCOUNTER → 2021-06-25 | Outpatient (CLI) | payer MEDICARE, BC ==
--- NOTE | 2021-06-25 14:19 | MM ---
Reason for exam: follow-up at short interval from prior study. Last mammogram was performed 6 months ago. History: Patient is postmenopausal. Benign MG pre op needle loc LT of the left breast, August 25, 2017. MG discontinued stereo core LT of the left breast, August 13, 2017. Took hormonal contraceptives for 10 years. Took estrogen for 11 years beginning at age 44. Physical Findings: Nurse did not find any significant physical abnormalities on exam. MG 3D Diag Mammo W/Cad LT CC and MLO view(s) were taken of the left breast. Prior study comparison: December 20, 2020, bilateral MG 3d screening mammo w/cad. December 20, 2019, bilateral MG 3d screening mammo w/cad. There are scattered fibroglandular densities. Finding #1: Architectural distortion in the upper quadrant of the left breast consistent with known excisional changes. Finding #2: There are typically benign vascular, dystrophic, round calcifications in the left breast. There is no discrete abnormality. These results were verbally communicated with the patient and result sheet given to the patient on 06/25/21. ASSESSMENT: Benign, BI-RAD 2 RECOMMENDATION: Return to routine screening mammogram schedule for both breasts. Back on schedule on November 2021.
== END | disposition home or self-care (01) ==
LOC: RADMAMWWP 12:55
PROVIDERS: ATTEND Surgery
DX: R92.1 Mammographic calcification found on diagnostic imaging of breast (principal); Z78.0 Asymptomatic menopausal state
CPT/HCPCS: 77065; G0279; 77061

== ENCOUNTER → 2022-03-05 | Outpatient (CLI) | payer MEDICARE, BC ==
--- NOTE | 2022-03-06 11:28 | MM ---
Reason for Exam: Screening (asymptomatic). Last mammogram was performed 1 year(s) and 3 month(s) ago. Patient History: Menarche at age 14. First Full-Term at age 28. Left ovary removed at age 44. Right ovary removed at age 44. Hysterectomy at age 44. Postmenopausal. Estrogen for 11 years from age 44 until age 55. Patient used Hormonal Contraceptives for 10 years. 08/25/2017, Benign Core Biopsy on the left side. 08/13/2017, MG discontinued stereo core LT on the left side. Risk Values: Radha 5 year model risk: 2.3%. NCI Lifetime model risk: 6.9%. Prior Study Comparison: 12/20/2019 Bilateral Screening Mammogram, [facility]. 12/20/2020 Bilateral Screening Mammogram, [facility] 06/25/2021 Left Diagnostic Mammogram, [facility]. Tissue Density: There are scattered fibroglandular densities. Findings: Analyzed By CAD. There is no suspicious group of microcalcifications or new suspicious mass in either breast. Chronic nodularity in both breasts. Post excisional/surgical changes of the left breast. Benign round calcifications within both breasts. No significant change from prior exams. Overall Assessment: Benign, BI-RAD 2 Management: Screening Mammogram of both breasts in 1 year. A clinical breast exam by your physician is recommended on an annual basis and results should be correlated with mammographic findings. Electronically signed and approved by: Cordell Hadley D.O.
== END | disposition home or self-care (01) ==
LOC: RADMAMWWP 14:13
PROVIDERS: ATTEND Surgery
DX: Z12.31 Encounter for screening mammogram for malignant neoplasm of breast (principal); Z78.0 Asymptomatic menopausal state
CPT/HCPCS: 77063; 77067

== ENCOUNTER → 2022-03-27 | Outpatient (CLI) | payer MEDICARE, BC ==
[2022-03-27 15:14] VITALS: BP 157/82; PULSE 101; RESP 17; TEMP 97.8
--- NOTE | 2022-03-27 15:19 | P.PN ---
Subjective Progress Note Date: 03/27/22 Principal diagnosis: fibrocystic breast fibrocystic breast changes The patient is a 71-year-old white female who in the spring of 2017 underwent a radiograph which revealed an increasing density in the left breast. Multiple attempts at localizing the density in question were unsuccessful and stereotactic core biopsy which was initially attempted was discontinued. The patient therefore underwent a needle localization and excisional biopsy. Pathology from this revealed fibrocystic changes including dense stromal fibrosis and rare microcalcifications. She had a bilateral mammogram on 03-05-22 which was BIRAD 2. This time the patient is not complaining of any new lumps masses or notches of concern in either breast. Radha risk analysis is five-year risk of 2.3%, she has declined hormonal prevention. Family history: maternal grandmother: cancer unsure of the type paternal grandmother: cancer unsure of the type Hormonal History: menarche: 15 ; 1, 1 child, breast fed: no, age at : 27 menopause: hysterectomy took ovaries in her 30's done for bleeding BCP: 1 year hormones: after hysterectomy 2 years Past surgical history: 1. Left breast biopsy 2. Right hip tendon surgery 3. EGD 4. enlarged liver/ultrasound [place] nonalcoholic cirrhosis Past medical history: 1. Diabetes 2. Hypertension 3. follows with cardiology for possible CAD 4. syncope Social History: smoke: none alcohol: none drugs: none - Constitutional Constitutional: Denies chills, Denies fever - EENT Eyes: denies blurred vision, denies pain Ears: bilateral: tinnitus, deny: decreased hearing Ears, nose, mouth and throat: Reports sore throat - Breasts Breasts: bilateral: as per HPI - Cardiovascular Cardiovascular: Reports high blood pressure rapid heart beat - Respiratory Respiratory: Denies cough - Gastrointestinal Comment: PUD in past Gastrointestinal: Denies abdominal pain, Denies diarrhea, Denies nausea, Denies vomiting - Genitourinary (Female) Genitourinary: Denies dysuria, Denies hematuria - Musculoskeletal Comment: right hip pain, - Integumentary Integumentary: Denies pruritus, Denies rash - Neurological Neurological: Denies numbness, Denies weakness - Psychiatric Psychiatric: Denies anxiety, Denies depression - Endocrine Comment: diabetes - Hematologic/Lymphatic Comment: none - Allergic/Immunologic Allergic/Immunologic: Reports seasonal allergies Objective - Constitutional General appearance: Present: cooperative - EENT Eyes: Present: EOMI ENT: Present: hearing grossly normal - Neck Neck: Present: normal ROM - Respiratory Respiratory: bilateral: CTA - Cardiovascular Heart sounds: normal: S1, S2 - Integumentary Integumentary: Present: normal turgor - Musculoskeletal Musculoskeletal: Present: gait normal - Psychiatric Psychiatric: Present: A&O x's 3, appropriate affect, intact judgment & insight - Additional findings Additional findings: Breast Exam: BRA: 42C inspection: grade 3 ptosis bilateral Palpation: Right breast: Multiple positional exam fibrocystic changes no dominant masses or nodules of concern Right axilla: No adenopathy of concern Left breast: Positional exam fibrocystic changes no dominant masses or nodules of concern Left axilla: No adenopathy of concern Assessment and Plan Assessment: Impression: Bilateral fibrocystic breast changes Bilateral mammogram [id number] benign BIRADS 2 Plan: Repeat bilateral mammogram 1 year with physician exam at that time CC: DR. Santillan
== END | disposition home or self-care (01) ==
LOC: WWCWWP 14:46
PROVIDERS: ATTEND Surgery
DX: Z53.9 Procedure and treatment not carried out, unspecified reason (principal)

== ENCOUNTER → 2023-03-06 | Outpatient (CLI) | payer MEDICARE, BC ==
[2023-03-06 09:30] VITALS: RESP 17
--- NOTE | 2023-03-06 09:40 | P.PN ---
Subjective Progress Note Date: 03/06/23 Principal diagnosis: fibrocystic breast changes fibrocystic breast changes The patient is a 71-year-old white female who in the spring of 2017 underwent a radiograph which revealed an increasing density in the left breast. Multiple attempts at localizing the density in question were unsuccessful and stereotactic core biopsy which was initially attempted was discontinued. The patient therefore underwent a needle localization and excisional biopsy. Pathology from this revealed fibrocystic changes including dense stromal fibrosis and rare microcalcifications. She had a bilateral mammogram on 03-06-23 which was BIRAD 2. This time the patient is not complaining of any new lumps masses or notches of concern in either breast. Mammogram reviewed with Dr. Eller. Radha risk analysis in past five-year risk of 2.3%, she has declined hormonal prevention. Family history: maternal grandmother: cancer unsure of the type paternal grandmother: cancer unsure of the type Hormonal History: menarche: 15 ; 1, 1 child, breast fed: no, age at : 27 menopause: hysterectomy took ovaries in her 30's done for bleeding BCP: 1 year hormones: after hysterectomy 2 years Past surgical history: 1. Left breast biopsy 2. Right hip tendon surgery 3. EGD 4. enlarged liver/ultrasound [place] nonalcoholic cirrhosis Past medical history: 1. Diabetes 2. Hypertension 3. follows with cardiology for possible CAD 4. syncope Social History: smoke: none alcohol: none drugs: none - Constitutional Constitutional: Denies chills, Denies fever - EENT Eyes: denies blurred vision, denies pain Ears: bilateral: tinnitus, deny: decreased hearing Ears, nose, mouth and throat: Reports sore throat - Breasts Breasts: bilateral: as per HPI - Cardiovascular Cardiovascular: Reports high blood pressure rapid heart beat - Respiratory Respiratory: Denies cough - Gastrointestinal Comment: PUD in past Gastrointestinal: Denies abdominal pain, Denies diarrhea, Denies nausea, Denies vomiting - Genitourinary (Female) Genitourinary: Denies dysuria, Denies hematuria - Musculoskeletal Comment: right hip pain, - Integumentary Integumentary: Denies pruritus, Denies rash - Neurological Neurological: Denies numbness, Denies weakness - Psychiatric Psychiatric: Denies anxiety, Denies depression - Endocrine Comment: diabetes - Hematologic/Lymphatic Comment: none - Allergic/Immunologic Allergic/Immunologic: Reports seasonal allergies Objective - Vital Signs Vital signs: Vital Signs Temp Pulse Resp 17 03/06/23 09:21 BP Pulse Ox FiO2 Intake & Output 03/05/23 03/06/23 03/06/23 18:59 06:59 18:59 Weight 75.75 kg - Constitutional General appearance: Present: cooperative - EENT Eyes: Present: EOMI ENT: Present: hearing grossly normal - Neck Neck: Present: normal ROM - Respiratory Respiratory: bilateral: CTA - Cardiovascular Heart sounds: normal: S1, S2 - Integumentary Integumentary: Present: normal turgor - Musculoskeletal Musculoskeletal: Present: gait normal - Psychiatric Psychiatric: Present: A&O x's 3, appropriate affect, intact judgment & insight - Additional findings Additional findings: Breast Exam: BRA: 42C inspection: grade 3 ptosis bilateral Palpation: Right breast: Multiple positional exam fibrocystic changes no dominant masses or nodules of concern Right axilla: No adenopathy of concern Left breast: Positional exam fibrocystic changes no dominant masses or nodules of concern Left axilla: No adenopathy of concern Assessment and Plan Assessment: Impression: Bilateral fibrocystic breast changes Bilateral mammogram 1013-23 benign BIRADS 2 Plan: Repeat bilateral mammogram 1 year with physician exam at that time CC: DR. Santillan
== END ==
LOC: WWCWWP 08:59
PROVIDERS: ATTEND Surgery
DX: Z12.31 Encounter for screening mammogram for malignant neoplasm of breast (principal); N60.11 Diffuse cystic mastopathy of right breast; N60.12 Diffuse cystic mastopathy of left breast; E11.9 Type 2 diabetes mellitus without complications; I10 Essential (primary) hypertension; Z88.8 Allergy status to other drugs, medicaments and biological substances; Z79.84 Long term (current) use of oral hypoglycemic drugs; Z79.82 Long term (current) use of aspirin; Z79.899 Other long term (current) drug therapy

== ENCOUNTER → 2024-03-07 | Outpatient (CLI) | payer MEDICARE, BC ==
--- NOTE | 2024-03-08 09:09 | MM ---
Reason for Exam: Screening (asymptomatic). Last screening mammogram was performed 12 month(s) ago. Patient History: Menarche at age 14. First Full-Term at age 28. Left ovary removed at age 44. Right ovary removed at age 44. Hysterectomy at age 44. Postmenopausal. Estrogen for 11 years from age 44 until age 55. Patient used Hormonal Contraceptives for 10 years. 08/25/2017, Benign Core Biopsy on the left side. 08/13/2017, MG discontinued stereo core LT on the left side. Risk Values: Radha 5 year model risk: 2.3%. NCI Lifetime model risk: 6.3%. Prior Study Comparison: 06/25/2021 Left Diagnostic Mammogram, [facility]. 03/05/2022 Bilateral MG 3D screening mammo w/cad, [facility]. 03/06/2023 Bilateral MG 3D screening mammo w/cad, [facility]. Tissue Density: There are scattered areas of fibroglandular density. Findings: Analyzed By CAD. Left breast surgical clips. Right breast: There is no suspicious group of microcalcifications or new suspicious mass. Benign-appearing calcifications right breast. Left breast: There is no suspicious group of microcalcifications or new suspicious mass. Benign-appearing calcifications left breast. Overall Assessment: Benign, BI-RAD 2 Management: Screening Mammogram of both breasts in [address] [facility] will attempt to contact patient to return for supplemental views and ultrasound if indicated. Patient should continue monthly self-breast exams. A clinical breast exam by your physician is recommended on an annual basis. This exam should not preclude additional follow-up of suspicious palpable abnormalities. Note on Radha scores and lifetime risk: 1. A Radha score greater than 3% is considered moderate risk. If this is the case, consider specialist referral to assess eligibility for a risk reducing agent. 2. If overall lifetime risk for the development of breast cancer is 20% or higher, the patient may qualify for future screening with alternating mammogram and breast MRI. [facility], , 03/08/2024 9:07 AM. Electronically signed and approved by: Cody Schroeder DO
== END | disposition home or self-care (01) ==
LOC: RADMAMWWP 09:55
PROVIDERS: ATTEND Surgery
CPT/HCPCS: 77063; 77067

== ENCOUNTER → 2024-03-11 | Outpatient (CLI) | payer MEDICARE, BC ==
[2024-03-11 10:36] VITALS: BP 178/92; PULSE 68; RESP 17; TEMP 97.7
--- NOTE | 2024-03-11 10:51 | P.PN ---
Subjective Progress Note Date: 03/11/24 Principal diagnosis: fibrocystic breast disease 03/11/24 Principal diagnosis: fibrocystic breast changes The patient is a 73-year-old white female who in the spring of 2017 underwent a radiograph which revealed an increasing density in the left breast. Multiple attempts at localizing the density in question were unsuccessful and stereotactic core biopsy which was initially attempted was discontinued. The patient therefore underwent a needle localization and excisional biopsy. Pathology from this revealed fibrocystic changes including dense stromal fibrosis and rare microcalcifications. She had a bilateral mammogram on 03-06-23 which was BIRAD 2, and a repeat bilateral mammogrma on 03-17-24 which is BIRAD 2. At this time the patient is not complaining of any new lumps masses or nodules of concern in either breast. mammogram personally reviewed and discussed with Dr. Schroeder, sarah BIRAD 2 Radha risk analysis in past five-year risk of 2.3%, she has declined hormonal prevention. lifetime risk: 6.3% Family history: maternal grandmother: cancer unsure of the type paternal grandmother: cancer unsure of the type mother: of ? lung cancer, eroding through the chest wall Hormonal History: menarche: 15 ; 1, 1 child, breast fed: no, age at : 27 menopause: hysterectomy took ovaries in her 30's done for bleeding BCP: 1 year hormones: after hysterectomy 2 years Past surgical history: 1. Left breast biopsy 2. Right hip tendon surgery 3. EGD 4. enlarged liver/ultrasound [place] nonalcoholic cirrhosis Past medical history: 1. Diabetes 2. Hypertension 3. follows with cardiology for possible CAD 4. syncope Social History: smoke: none alcohol: none drugs: none - Constitutional Constitutional: Denies chills, Denies fever - EENT Eyes: denies blurred vision, denies pain Ears: bilateral: tinnitus, deny: decreased hearing Ears, nose, mouth and throat: Reports sore throat - Breasts Breasts: bilateral: as per HPI - Cardiovascular Cardiovascular: Reports high blood pressure rapid heart beat - Respiratory Respiratory: Denies cough - Gastrointestinal Comment: PUD in past Gastrointestinal: Denies abdominal pain, Denies diarrhea, Denies nausea, Denies vomiting - Genitourinary (Female) Genitourinary: Denies dysuria, Denies hematuria - Musculoskeletal Comment: right hip pain, - Integumentary Integumentary: Denies pruritus, Denies rash - Neurological Neurological: Denies numbness, Denies weakness - Psychiatric Psychiatric: Denies anxiety, Denies depression - Endocrine Comment: diabetes - Hematologic/Lymphatic Comment: none - Allergic/Immunologic Allergic/Immunologic: Reports seasonal allergies Objective - Vital Signs Vital signs: Vital Signs Temp 97.7 F 03/11/24 10:33 Pulse 68 03/11/24 10:33 Resp 17 03/11/24 10:33 BP 178/92 03/11/24 10:33 Pulse Ox 98 03/11/24 10:33 FiO2 Intake & Output 03/10/24 03/11/24 03/11/24 18:59 06:59 18:59 Weight 78.471 kg - Constitutional General appearance: Present: cooperative - EENT Eyes: Present: EOMI ENT: Present: hearing grossly normal - Neck Neck: Present: normal ROM - Respiratory Respiratory: bilateral: CTA - Cardiovascular Rhythm: regular Heart sounds: normal: S1, S2 - Integumentary Integumentary: Present: normal turgor - Musculoskeletal Musculoskeletal: Present: gait normal - Psychiatric Psychiatric: Present: A&O x's 3, appropriate affect, intact judgment & insight - Additional findings Additional findings: Breast Exam: BRA: 42C inspection: grade 3 ptosis bilateral Palpation: Right breast: Multiple positional exam fibrocystic changes no dominant masses or nodules of concern Right axilla: No adenopathy of concern Left breast: Positional exam fibrocystic changes no dominant masses or nodules of concern Left axilla: No adenopathy of concern Assessment and Plan Assessment: Impression: Bilateral fibrocystic breast changes Bilateral mammogram 1014-24 benign BIRADS 2 Plan: Repeat bilateral mammogram February 2025 with physician exam at that time CC: DR. Santillan
== END ==
LOC: WWCWWP 10:21
PROVIDERS: ATTEND Surgery

== ENCOUNTER → 2024-04-19 | Outpatient (CLI) | payer MEDICARE, BC ==
--- NOTE | 2024-04-19 15:20 | MR ---
EXAMINATION TYPE: MR brain wo con DATE OF EXAM: 04/19/2024 3:10 PM COMPARISON: None. CLINICAL INDICATION: Female, 73 years old with history of I67.9 CEREBROVASCULAR DISEA I65.2 CAROTID S TENOSIS; PHH, Dizzy spells with falling, Blacked out fell backwards and hit head, Memory loss TECHNIQUE: Multi planar, multi sequence imaging was performed through the brain including: T1, T2, In version recovery, Diffusion weighted imaging, and gradient echo imaging. No gadolinium was given. FINDINGS: Mild cerebral atrophy with proportional dilation of ventricular system. Scattered foci of high T2 s ignal intensity are seen within the periventricular white matter. Midline structures show no abnormal ity. Diffusion-weighted imaging shows no evidence of restricted diffusion. The susceptibility weighte d images do not reveal any evidence for micro-hemorrhage. The bone marrow signal is within normal limits. Paranasal sinuses and mastoid air cells: No significant paranasal sinus disease. Visualized orbits: Orbital contents are intact. IMPRESSION: 1. No evidence of intracranial mass or acute/subacute infarct. 2. Nonspecific white matter changes, likely secondary to small vessel ischemic disease. [facility], , 04/19/2024 3:17 PM
--- NOTE | 2024-04-19 15:35 | MR ---
EXAMINATION TYPE: MR angio neck wo/w con DATE OF EXAM: 04/19/2024 3:27 PM COMPARISON: None. CLINICAL INDICATION: Female, 73 years old with history of I67.9 CEREBROVASCULAR DISEA I65.2 CAROTID S TENOSIS; PHH, Dizziness, Weakness and numbness into Right arm TECHNIQUE: Multiplanar, multi-sequence imaging as well as [id number] and phase contrast imaging w as performed extracranial vasculature of the neck. 2-D and 3-D [id number]-ni-[id number] imaging. 3-D reformatte d images and maximum intensity projection reformatted images were submitted for evaluation. IV Contrast: 8 mL Gadavist (None, if empty) FINDINGS: RIGHT CAROTID SYSTEM: The common carotid artery is patent. The carotid bifurcations that she no evide nce for hemodynamically significant stenosis. The internal carotid arteries patent. LEFT CAROTID SYSTEM: The common carotid artery is patent. The carotid bifurcations that she no evide nce for hemodynamically significant stenosis. The internal carotid arteries patent. The origins of the great vessels and vertebral arteries appear unremarkable. The left vertebral anaid ry is dominant. The right vertebral artery is not visualized. IMPRESSIONS: 1. Nonvisualization of the right vertebral artery extending from its origin throughout the neck. Fin dings suggest occlusion. 2. No evidence of significant stenosis at the carotid bifurcations. The carotid and left vertebral a rteries are patent. 3. 2No evidence aneurysm. [facility], , 04/19/2024 3:33 PM
== END | disposition home or self-care (01) ==
LOC: RADMRIMAIN 13:53
PROVIDERS: ATTEND Psychiatry & Neurology Neurology
DX: I67.9 Cerebrovascular disease, unspecified (principal); R90.82 White matter disease, unspecified; R41.3 Other amnesia; R42 Dizziness and giddiness; G31.9 Degenerative disease of nervous system, unspecified
CPT/HCPCS: 70549; 70551; A9585

== ENCOUNTER → 2024-04-27 | Outpatient (CLI) | payer MEDICARE, BC ==
--- NOTE | 2024-04-29 20:52 | MR ---
EXAMINATION TYPE: MR liver wo/w con DATE OF EXAM: 04/27/2024 5:34 PM COMPARISON: None CLINICAL INDICATION: Female, 73 years old with history of K74.60 UNSPEC CIRRHOSISO FLIVER K74.60; TECHNIQUE: Multiplanar multi-sequence imaging was performed without contrast. Post contrast imaging was performed. Post IV contrast subtraction images were also submitted for review. IV Contrast: 8 cc Gadavist FINDINGS: LOWER CHEST: Elevated right diaphragm. ABDOMEN Liver: Nodular contour to liver. Gallbladder and Bile ducts: No evidence for ductal dilation, or biliary stricture or evidence of chol edocholithiasis. The gallbladder is not visualized. Pancreas: No ductal dilation. No evidence for solid mass. Spleen: Normal for size. Adrenal glands: Unremarkable. Kidneys: No evidence for obstructive uropathy. No suspicious renal masses. Intrinsic high T1 signal t o millimeter right medial posterior hemorrhagic/proteinaceous cyst. Multiple smaller proteinaceous/he morrhagic cysts also in the left kidney. No solid enhancing renal mass. Stomach and Bowel: No evidence for bowel wall thickening or evidence for obstruction. Retroperitoneum/Peritoneum: No evidence of pneumoperitoneum or free fluid. Vasculature: No aortic aneurysm. Revascularization of the paraumbilical vein. Musculoskeletal: The osseous structures appear intact. Lymph Nodes: No gross evidence for lymphadenopathy. Abdominal wall: Unremarkable. IMPRESSION: 1. Hepatic cirrhosis with liver extending up into a elevated right diaphragm. No ulcerations immedia te HCC criteria. 2. Evidence of portal hypertension with revascularization of the periumbilical vein and Paraesophage al varices. 3. Bilateral hemorrhagic/proteinaceous cysts, Bosniak type II equivalent. [facility], , 04/29/2024 8:50 PM
== END | disposition home or self-care (01) ==
LOC: RADMRIMAIN 16:02
PROVIDERS: ATTEND Internal Medicine Gastroenterology
DX: K74.60 Unspecified cirrhosis of liver (principal); K76.6 Portal hypertension; I85.10 Secondary esophageal varices without bleeding
CPT/HCPCS: 74183; A9585

== ENCOUNTER 2024-09-02 08:32 | Day surgery (SDC) | payer MEDICARE ==
[2024-09-02] MEDS: IV FLUID CONTINUATION 1,000 ML IV ONE (09:05)
[2024-09-02] MEDS: LACTATED RINGERS 1,000 ML IV SCH (09:07)
[2024-09-02 09:11] VITALS: TEMP 97
[2024-09-02 09:25] LABS: Glucose,Whole Blood 186 mg/dL (70-110)
[2024-09-02] MEDS ORDERED: PROPOFOL 10 MG/ML 20 ML VIAL IV ONE (09:31)
[2024-09-02] MEDS ORDERED: LIDOCAINE 2% (PF) 20 MG/ML 5 ML VIAL ONE (09:31)
--- NOTE | 2024-09-02 09:50 | P.PCN ---
Date of Procedure: 09/02/24 Procedure(s) Performed: BRIEF HISTORY: Patient is a 74-year-old, pleasant, white female scalp and upper endoscopies upon evaluation for intermittent dysphagia to solids for the last 1 year duration. She also has history of liver cirrhosis secondary to fatty liver disease and history of esophageal varices. She is scheduled for an upper endoscopy with possible dilation and possible esophageal variceal ligation today.. PROCEDURE PERFORMED: Esophagogastroduodenoscopy with attempted esophageal variceal ligation. PREOPERATIVE DIAGNOSIS: Intermittent dysphagia to solids/history of esophageal varices. IV sedation per anesthesia. PROCEDURE: After informed consent was obtained, the patient was brought into the endoscopy unit. IV sedation was administered by Anesthesia under continuous monitoring. Initially the Olympus GIF-140 video endoscope was inserted into the mouth. Esophagus intubated with moderate to severe difficulty because of cricopharyngeal dysfunction/cricopharyngeal scarring.. It was gradually advanced into the stomach and duodenum and carefully examined. The bulb and the second part of the duodenum appeared normal. The scope at this time was withdrawn to the stomach, adequately insufflated with air, and upon careful examination, mucosa of the antrum, body, cardia and the fundus appeared normal. The scope was then withdrawn into the esophagus. The GE junction was located at 39 cm from the incisors. There were large distal and mid esophageal varices identified. There was evidence of cricopharyngeal dysfunction with fibrosis noted. At this time the scope was removed and I attempted at the esophageal variceal ligation but after the equipment was introduced onto the tip of the scope I was not able to reintubate the esophagus because of severe cricopharyngeal dysfunction. His Chou's ligation could not be performed. Patient tolerated the procedure well. IMPRESSION: 1. Large mid and distal esophageal varices. 2. Cricopharyngeal dysfunction/fibrosis 3. Esophageal variceal ligation could not be performed as a scope with the ligation equipment could not be advanced into the distal esophagus because of cricopharyngeal dysfunction RECOMMENDATIONS: The findings of this examination were discussed with the patient as well as her family. She was advised to continue with soft diet. If her symptoms progressively get worse she will be a candidate for Z- POEM/cricopharyngeal myotomy. . Continue with Inderal 60 mg daily.
[2024-09-02 10:11] VITALS: BP 133/74; PULSE 77; RESP 16
== END 2024-09-02 10:37 | disposition home or self-care (01) ==
LOC: ORWHC2ENDO 08:32
PROVIDERS: ATTEND Internal Medicine Gastroenterology
DX: I85.10 Secondary esophageal varices without bleeding (principal); K22.89 Other specified disease of esophagus; K74.69 Other cirrhosis of liver; K76.0 Fatty (change of) liver, not elsewhere classified; E11.9 Type 2 diabetes mellitus without complications; N28.9 Disorder of kidney and ureter, unspecified; K21.9 Gastro-esophageal reflux disease without esophagitis; Z79.890 Hormone replacement therapy; Z79.84 Long term (current) use of oral hypoglycemic drugs; Z79.899 Other long term (current) drug therapy; Z88.8 Allergy status to other drugs, medicaments and biological substances
CPT/HCPCS: 43235; J2704; J2003

== ENCOUNTER → 2024-11-17 | Outpatient (CLI) | payer MEDICARE ==
--- NOTE | 2024-11-17 13:32 | FL ---
Exam Date: 11/17/2024 12:45 PM. Modified barium swallow for dysphagia. Consistencies administered: Various consistency of barium. No images were sent to PACS. Please see speech pathology report. DAP: Not recorded mGym2 Gycm2 [facility], , 11/17/2024 1:30 PM
== END | disposition home or self-care (01) ==
LOC: RADFLMAIN 11:25
PROVIDERS: ATTEND Internal Medicine
DX: R13.13 Dysphagia, pharyngeal phase (principal)
CPT/HCPCS: 74230